=== PATIENT | female | born 1960 | race Caucasian/White ===

== ENCOUNTER 2019-09-23 06:26 | Emergency (ER) | payer OTHER ==
[~2019-09-23] VITALS: Ht 165.1 cm; Wt 47.6 kg
[~2019-09-23 06:26] MED LIST: CARVEDILOL; CRESTOR
--- NOTE | 2019-09-23 06:39 | NUR ---
PATIENT WAS MSE BY DR VAZQUEZ IN ROOM 05A.
--- NOTE | 2019-09-23 07:16 | NUR ---
Patient discharged to home in stable conditon. Written and verbal after care instructions given. Patient and verbalizes understanding of instructions.
== END 2019-09-23 07:19 | disposition home or self-care (01) ==
LOC: ER 06:38
DX: S52.532A Colles' fracture of left radius, initial encounter for closed fracture (principal); E78.5 Hyperlipidemia, unspecified; Z88.2 Allergy status to sulfonamides; Z88.1 Allergy status to other antibiotic agents; Z88.8 Allergy status to other drugs, medicaments and biological substances; Z87.891 Personal history of nicotine dependence; Z79.899 Other long term (current) drug therapy; V19.9XXA Pedal cyclist (driver) (passenger) injured in unspecified traffic accident, initial encounter; Y93.89 Activity, other specified; Y92.89 Other specified places as the place of occurrence of the external cause; Y99.8 Other external cause status
CPT/HCPCS: 73110; A4663